=== PATIENT | female | born 1980 | race African-American/Black ===

== ENCOUNTER 2017-07-24 00:46 | Emergency (ER) | payer OTHER ==
[~2017-07-24] VITALS: Ht 152.4 cm; Wt 63.5 kg
[2017-07-24] MEDS ORDERED: CYCLOBENZAPRINE10 MG PO (02:28)
[2017-07-24] MEDS ORDERED: KETO10TA2 PO (02:28)
== END 2017-07-24 02:33 | disposition home or self-care (01) ==
LOC: ER 00:46
DX: S80.02XA Contusion of left knee, initial encounter (principal); W18.2XXA Fall in (into) shower or empty bathtub, initial encounter; Y93.E1 Activity, personal bathing and showering; Y92.091 Bathroom in other non-institutional residence as the place of occurrence of the external cause; Y99.8 Other external cause status